=== PATIENT | male | born 1980 | race Two or more races ===

== ENCOUNTER 2016-09-22 15:22 | Emergency (ER) | payer SELFPAY ==
[~2016-09-22] VITALS: Ht 182.9 cm; Wt 108.8 kg
[2016-09-22] MEDS ORDERED: LORazepam 2 MG/ML, 1ML IVPush ONE (16:00)
[2016-09-22] MEDS ORDERED: SODIUM CHLORIDE 0.9% 1,000ML IVBOLUS ONE (16:00)
[2016-09-22] MEDS ORDERED: SODIUM CHLORIDE FLUSH 10ML SYR IVF ONE (16:00)
[2016-09-22 16:05] LABS: BLOOD UREA NITROGEN 21 mg/dL (7-18)
[2016-09-22 16:56] VITALS: BP 141/83
== END 2016-09-22 17:29 | disposition home or self-care (01) ==
LOC: ED 17:25
DX: R42 Dizziness and giddiness (principal); E86.0 Dehydration; E86.9 Volume depletion, unspecified; F41.1 Generalized anxiety disorder; I10 Essential (primary) hypertension
CPT/HCPCS: 36415; 80048; 82040; 85025; 96374; 99284; J2060; J7030